=== PATIENT | female | born 1980 | race Caucasian/White ===

== ENCOUNTER 2020-12-15 03:04 | Emergency (ER) | payer SELFPAY ==
[2020-12-15 03:04] VITALS: BP 149/97; PULSE 75; RESP 16; TEMP 35.8; O2SAT 99; BMI 30.3
--- NOTE | 2020-12-15 03:20 | ED.VIS.GEN ---
History of Present Illness Chief Complaint: Dental Informant: Patient Onset: Yesterday Context: Gradual Onset Current Severity: Moderate Maximum Severity: Moderate Narrative: Patient presents secondary to dental abscess. Patient states she had a cavity in her tooth. She bit down on something about a week and a half ago and her tooth broke. Yesterday she started developing some pain in her tooth and noted some slight swelling last night. Patient works third shift and states is her shift continued swelling seem to get worse. She presents here stating that she knows she has been on antibiotics that she can see her dentist. She denies difficulty swallowing. No fever or chills. Past Medical History - Allergies and Home Meds Allergies/Adverse Reactions: Allergies No Known Allergies Allergy (Verified 12/15/20 03:06) Past Medical History: None Surgical History: tonsillectomy Smoking Status: Current every day smoker Review of Systems General: Denies: Chills, Fever Eyes: Denies: Visual changes - bilaterally ENT: Reports: - - Left-sided dental pain. Denies: Bilateral ear pain Cardiovascular: Denies: Chest pain Respiratory: Denies: Dyspnea, Cough Gastrointestinal: Denies: Abdominal pain, Vomiting, Diarrhea Genitourinary: Denies: Dysuria Musculoskeletal: Denies: Swelling, Extremity Pain Neurological: Denies: Headache Hematologic: Denies: Easy bruising, Easy bleeding Allergy: Denies: Uticaria Physical Exam Vital Signs/Narrative: Vital Signs Temp Pulse Resp BP Pulse Ox 12/15/20 03:04 96.4 F L 75 16 149/97 H 99 Inital Vital Signs reviewed: Yes General: Well nourished, Well developed Head: Normocephalic Eyes: Perrl, EOMI ENT: Moist mucous membranes, TM's clear, - - Left facial edema along the mandible. No erythema or warmth. Intraoral examination reveals several cavities. The left mandibular first molar is broken with mild surrounding gum edema. Posterior pharynx exam is normal. No trismus. No evidence of Elidia's angina. Neck: Supple Cardiovascular: Regular rate, Regular rhythm Respiratory: No distress, CTA bilaterally Abdomen: Soft, Nontender Skin: Normal color Neurological: Alert, Oriented x3 Psychological: Normal affect Diagnostic/Tx/Re-eval - Medical Decision Making Patient be treated with a course of Pen-Vee K, first dose given here. She will follow-up with her dentist. She will continue Tylenol ibuprofen as needed for pain. ED Disposition - Plan for ED Patient: Disposition: Home or Assisted Living Diagnosis: Dental abscess Instructions: ED Dental Abscess Prescriptions: Penicillin V Potassium 500 mg PO 4X/DAY #40 tablet Transmission Status: Received by [employer] #30 Additional Instructions: Follow-up with your dentist as soon as possible.
[2020-12-15] MEDS: Penicillin Vk 250 MG Tablet 500 MG PO (03:38)
[2020-12-15 03:40] VITALS: BP 149/97; PULSE 75; RESP 16; O2SAT 97
== END 2020-12-15 03:41 | disposition home or self-care (01) ==
PROVIDERS: Emergency Provider Emergency Medicine; PCP Internal Medicine
DX: K04.7 Periapical abscess without sinus (principal); F17.210 Nicotine dependence, cigarettes, uncomplicated
CPT/HCPCS: 99283

== ENCOUNTER 2021-05-03 09:14 | Emergency (ER) | payer SELFPAY ==
[2021-05-03 09:14] VITALS: BP 154/98; PULSE 77; RESP 16; TEMP 36.5; O2SAT 100; BMI 28.6
--- NOTE | 2021-05-03 09:31 | EDS_ITS ---
HPI History of Present Illness Chief Complaint: Dental Detail of Chief Complaint: Lower dental pain with facial swelling Informant: patient Narrative Narrative: Patient presents to the emergency department with intermittent left lower dental pain for several weeks due to a broken tooth. Yesterday patient started noticing left-sided facial swelling while at work. She denies any fevers or chills or sweats. She does not have a dentist. Prior similar symptoms: No PFSH PFSH Home Medications aspirin [Baby Aspirin] 81 mg PO DAILY 05/03/21 [History Last Taken Unknown] clindamycin HCl [Cleocin HCl] 300 mg PO Q6H #40 capsule 05/03/21 [Rx Last Taken Unknown] Allergy/AdvReac Type Severity Reaction Status Date / Time No Known Allergies Allergy Verified 05/03/21 09:16 Social History Smoking Status: Current every day smoker tobacco type: cigarettes ROS ROS ED Constitutional Constitutional ED: Reports systems reviewed and no addt'l complaints, except as documented; Denies body ache(s), change in weight or chills Eyes Eyes: Denies acute decrease in peripheral vision, change in vision, double vision or loss of vision ENT ENT ED: Reports none and other Details: Left lower dental pain and left-sided facial swelling ; Denies ear pain, lip swelling, loss taste/smell, neck pain, otalgia or sore throat Cardiovascular Cardiovascular: Reports none; Denies abdominal pain, chest pain with activity, leg edema, lightheadedness, palpitations, rapid heart rate or syncope Respiratory/Chest Respiratory/Chest: Reports none; Denies change in mental status, dry cough, dyspnea, hemoptysis, shortness of breath at rest or shortness of breath with exertion Gastrointestinal Gastrointestinal: Reports none; Denies abdominal pain, change in stool character, diarrhea, hematemesis, hematochezia, melena, rectal bleeding or vomiting Genitourinary Genitourinary ED: Reports none; Denies abdominal discomfort, anuria, dysuria, genital pain or polyuria Musculoskeletal Musculoskeletal: Reports none; Denies arthralgias, back pain, difficulty walking, extremity pain, muscle weakness or myalgias Integumentary Reports none; Denies abscess or rash Neurologic Neurologic: Reports none; Denies abnormal gait, confusion, focal weakness, frequent falls, headache(s), loss of vision, numbness, paresthesias, radicular pain, vertigo or weakness Psychiatric Psychiatric: Reports systems reviewed and no addt'l complaints, except as documented and none; Denies behavioral changes, confusion, difficulty concentrating, hallucinations, suicidal ideation, tactile hallucinations or visual hallucinations Endocrine Endocrinology: Denies none, cold intolerance, excessive sweating, fatigue or heat intolerance Hematologic/Lymphatic Hematologic/Lymphatic: Reports none; Denies anemia, easy bleeding or easy bruising Allergic/Immunologic Allergic/Immunologic ED: Denies as per HPI, none, lip swelling, mouth swelling, throat swelling, tongue swelling or hives EXAM Physical Exam Const Vital Signs: 05/03/21 09:14 Temperature 97.7 F L Temperature Source Temporal Pulse Rate 77 Respiratory Rate 16 Blood Pressure 154/98 H Blood Pressure Mean 116 Pulse Ox 100 Oxygen Delivery Method Room Air Positive well nourished and well developed General Appearance ED: well developed and NAD HEENT Reports TM's clear and moist mucous membranes HEENT Narrative: Patient does have a broken and carried tooth #20 that is slightly tender to palpation. There is mild gingival swelling. Evaluation of the left side of the face does reveal what looks to be a abscess with surrounding cellulitis over the area of the left lower mandible. There is a fluctuant area measuring approximately 2 cm in diameter. normocephalic and atraumatic; Negative for trauma or tenderness Tympanic Membrane ED: Yes TM's clear Eyes PERRL and EOMs intact bilaterally General Eye ED: Negative for pale conjunctiva or scleral icterus Neck no lymphadenopathy, supple and no JVD General: Negative for tenderness Chest Wall inspection of chest normal and palpation of chest normal Chest: Negative for tenderness Resp normal respiratory effort and clear to auscultation bilaterally Effort and Inspection: Negative for respiratory distress or pain with movement Auscultation: Negative for rhonchi, wheezes or diminished lung sounds Cardio regular rate, regular rhythm, S1 normal heart sound, S2 normal heart sound and no murmurs Peripheral Pulses: pulses 2+ throughout GI normal to inspection, nondistended, normoactive bowel sounds, soft to palpation, non-tender, non-distended and no masses Back/Spine no CVA tenderness and no thoracic nor lumbar tenderness Extremity normal to inspection General Extremety ED: Negative for edema General Extremity: Negative for edema Neuro oriented x3, CN's II-XII intact bilaterally, no sensory deficits noted and gait normal Sensorium / Orientation: awake, alert, oriented to person, oriented to place and oriented to time Motor Exam: strength 5/5 throughout and strength abnormal Psych mental status grossly normal Skin no rashes or lesions noted and no wounds MDM MDM MDM Narrative Medical decision making narrative: Patient was offered a stab incision as I suspected likely a dermal abscess. Patient was in agreement. She did not want anesthetic. We decided to do a stab incision with a 18-gauge needle rather than make a larger incision given the aesthetics to the face. I cleansed the skin with alcohol swab and then with an 18-gauge needle made a stab incision and was able to express copious amounts of free-flowing purulent drainage that was foul smelling. After expressing as much of the purulent material a clean dressing was applied. Patient was started on clindamycin. Patient also interested in receiving the Covid vaccine [employer]. She understands its not fully FDA approved. She has not had Covid recently and has no Covid symptoms. Patient has not had any complications with vaccines in the past. Discharge Plan Triage Chief Complaint: Dental ED Provider: Melecio Gordon Dx/Rx/DC Orders Clinical Impression: Abscess, Pain, dental Instructions: Abscess Drainage, ED Dental Pain Prescriptions: New clindamycin HCl [Cleocin HCl] 300 MG capsule 300 mg PO Q6H Qty: 40 RF: 0 No Action aspirin [Baby Aspirin] 81 mg Tablet,Chewable 81 mg PO DAILY RF: 0 Primary Care Provider: Eula Gonzalez Referrals: Eula Gonzalez MD [Primary Care Provider] - Activity Restrictions/Additional Instructions: See a dentist at the earliest possible time. Disposition Disposition: Home, Self Care
[2021-05-03] MEDS: COVID-19 VAC,AD26(JANSSEN)/PF 0.5 ML SYRINGE IM (10:02)
[2021-05-03] MEDS: Clindamycin HCl 150 MG Capsule 300 MG PO (10:06)
== END 2021-05-03 10:33 | disposition home or self-care (01) ==
PROVIDERS: Emergency Provider Emergency Medicine; PCP Internal Medicine
DX: K04.7 Periapical abscess without sinus (principal); S02.5XXA Fracture of tooth (traumatic), initial encounter for closed fracture; X58.XXXA Exposure to other specified factors, initial encounter; Y93.9 Activity, unspecified; Y92.9 Unspecified place or not applicable; F17.210 Nicotine dependence, cigarettes, uncomplicated
CPT/HCPCS: 41800; 91303; 99283

== ENCOUNTER 2021-06-24 10:40 | Emergency (ER) | payer SELFPAY ==
[2021-06-24 10:41] VITALS: BP 147/85; PULSE 65; RESP 17; TEMP 36.5; O2SAT 100; BMI 29.9
[2021-06-24 10:55] VITALS: BP 147/85; PULSE 56; RESP 16; TEMP 36.6; O2SAT 99
--- NOTE | 2021-06-24 11:13 | EDS_ITS ---
HPI History of Present Illness Chief Complaint: Abscess Informant: patient Narrative Narrative: Patient is complaining of a swollen red sore area on the left side of her jaw. She does not have dental pain. She has no trauma here. It started with a small red spot about 4 days ago and is slowly grown. She has no systemic symptoms such as nausea vomiting fevers or chills. No history of immunosuppression. She has squeezed the area but no drainage. PFSH PFSH Home Medications aspirin [Baby Aspirin] 81 mg PO DAILY 05/03/21 [History Last Taken Unknown] cephalexin 500 mg PO Q6 #40 cap 06/24/21 [Rx Last Taken Unknown] sulfamethoxazole-trimethoprim [Bactrim DS] 1 tab PO Q12H #20 tab 06/24/21 [Rx Last Taken Unknown] Allergy/AdvReac Type Severity Reaction Status Date / Time No Known Allergies Allergy Verified 06/24/21 10:40 Surgical History H/O: Social History Smoking Status: Current every day smoker tobacco type: cigarettes ROS ROS ED Constitutional Constitutional ED: Denies chills or fever(s) ENT ENT ED: Reports other Details: See history of present illness ; Denies rhinorrhea or sore throat Cardiovascular Cardiovascular: Denies chest pain or palpitations Gastrointestinal Gastrointestinal: Denies nausea or vomiting Musculoskeletal Musculoskeletal: Denies arthralgias or myalgias Integumentary Reports abscess and other Details: See history of present illness. Endocrine Endocrinology: Denies polydipsia or polyuria Allergic/Immunologic Allergic/Immunologic ED: Denies mouth swelling EXAM Physical Exam Const Vital Signs: 06/24/21 10:41 06/24/21 10:55 Temperature 97.7 F L 97.8 F Temperature Source Temporal Oral Pulse Rate 65 56 L Respiratory Rate 17 16 Blood Pressure 147/85 H 147/85 H Blood Pressure Mean 105 105 Pulse Ox 100 99 Oxygen Delivery Method Room Air Room Air Positive well nourished and well developed General Appearance ED: well developed and NAD HEENT HEENT Narrative: Has an area of erythema about 2 and half centimeters around on the left lateral aspect of the cheek overlying the mandible. This is well- circumscribed. There is about a 1 and half centimeter area that swollen in the middle. This is slightly fluctuant. There is some crusting and dry skin over it but no actual drainage. It looks close to draining though. No dental tenderness or swelling inside the mouth. Negative for trauma Eyes General Eye ED: Negative for pale conjunctiva or scleral icterus Neck no lymphadenopathy Resp normal respiratory effort Psych mental status grossly normal Skin Skin Narrative: Abscess left lateral jaw as above. MDM MDM MDM Narrative Medical decision making narrative: Discussed risks options. Procedure: Drainage of abscess: The area around the wound was cleaned and prepped. It was anesthetized with 1 cc of 1% lidocaine with epinephrine locally. She got good anesthesia. #11 blade made incision over the center soft area that had a little crusting already. We got immediate relief of purulent material. We applied some gentle pressure to drain this. I then broke up any potential loculations. None were found. We did irrigate this. I explained care to the patient. The pocket is not really big enough to put a wick in. But patient will keep moist compress on the area. She can gently milk the area to keep it clean. We will get her on antibiotics. We discussed signs and symptoms that would prompt return to the emergency department. We also discussed expected course with improvement really starting primarily in a few days. Discharge Plan Triage Chief Complaint: Abscess ED Provider: Jimmy Bray Dx/Rx/DC Orders Clinical Impression: Abscess of face, Encounter for incision and drainage procedure Instructions: ED Abscess Incision And Drainage Prescriptions: New cephalexin [cephalexin] 500 MG capsule 500 mg PO Q6 Qty: 40 RF: 0 sulfamethoxazole-trimethoprim [Bactrim DS] 800-160 mg tablet 1 tab PO Q12H Qty: 20 RF: 0 No Action aspirin [Baby Aspirin] 81 mg Tablet,Chewable 81 mg PO DAILY RF: 0 Primary Care Provider: Eula Gonzalez Referrals: Eula Gonzalez MD [Primary Care Provider] - 3-5 Days if not improving Disposition Disposition: Home, Self Care
[2021-06-24] MEDS: Lidocaine 1% /Epi 1:100 (20ml) 20 ML Vial INFILT (11:27)
[2021-06-24 12:26] VITALS: BP 129/84; PULSE 76; RESP 15; O2SAT 99
== END 2021-06-24 12:27 | disposition home or self-care (01) ==
PROVIDERS: Emergency Provider Emergency Medicine; PCP Internal Medicine
DX: L02.01 Cutaneous abscess of face (principal); F17.210 Nicotine dependence, cigarettes, uncomplicated
CPT/HCPCS: 10060; 99283

== ENCOUNTER 2021-09-25 10:55 | Emergency (ER) | payer SELFPAY ==
[2021-09-25 10:56] VITALS: BP 139/82; PULSE 65; RESP 18; TEMP 36.6; O2SAT 96; BMI 31.8
--- NOTE | 2021-09-25 12:25 | EDS_ITS ---
HPI History of Present Illness Chief Complaint: Dental Informant: patient Onset/Context/Timing Onset: Yesterday Context: Gradual Onset Timing: Continuous Current Severity: Mild Maximum Severity: Moderate Associated Symptoms Assocated Symptom - Dental: jaw swelling and face swelling; Negative for fever, cold sensitivity or hot sensitivity Narrative Narrative: 40-year-old female no sniffing past medical history. States yesterday started having lower jaw pain and swelling. No trauma. She has had infections before. Denies any fever or chills. No trouble swallowing or breathing. Prior similar symptoms: Yes Recent Illness/Hospitalization: No PFSH PFSH Medical History no medical history no medical history Home Medications aspirin [Baby Aspirin] 81 mg PO DAILY 05/03/21 [History Last Taken Unknown] penicillin V potassium 500 mg PO 4X/DAY #40 tab 09/25/21 [Rx Last Taken Unknown] Allergy/AdvReac Type Severity Reaction Status Date / Time No Known Allergies Allergy Verified 09/25/21 10:55 Surgical History H/O: Social History Smoking Status: Current every day smoker tobacco type: cigarettes ROS ROS ED ROS Narrative Denies. Review of Systems ROS Unobtainable: Denies due to encephalopathy Constitutional Constitutional ED: Denies chills, fever(s) or subjective Eyes Eyes: Denies change in vision ENT ENT ED: Denies ear pain Cardiovascular Cardiovascular: Denies chest pain or palpitations Respiratory/Chest Respiratory/Chest: Denies cough or dyspnea Gastrointestinal Gastrointestinal: Denies abdominal pain Genitourinary Genitourinary ED: Denies dysuria or hematuria Musculoskeletal Musculoskeletal: Denies myalgias Integumentary Denies abscess or rash Neurologic Neurologic: Denies headache(s) or weakness Psychiatric Psychiatric: Denies anxiety or depression Endocrine Endocrinology: Denies polydipsia or polyuria Hematologic/Lymphatic Hematologic/Lymphatic: Denies easy bleeding or easy bruising Allergic/Immunologic Allergic/Immunologic ED: Denies mouth swelling or urticaria EXAM Physical Exam Narrative Exam Narrative: 40-year-old female no acute distress. Vital signs stable afebrile. H EENT exam dental decay throughout her mouth. Molars are eroded to the gums. On the left lower jaw gum is swollen there is no abscess. She has moderate right facial swelling. Underneath her tongue is not tender or swollen. There is no Elidia's angina. There is no cervical lymphadenopathy. She has no trouble swallowing or breathing. There is no drooling or stridor. Lungs are clear. Heart regular rhythm. Abdomen soft. Otherwise exam unremarkable. On her mouth exam there is nothing that can be drained at this time. Const Vital Signs: 09/25/21 10:56 Temperature 97.9 F Temperature Source Temporal Pulse Rate 65 Respiratory Rate 18 Blood Pressure 139/82 H Blood Pressure Mean 101 Pulse Ox 96 Oxygen Delivery Method Room Air Positive well nourished, well developed and obese; Negative for cachectic, contractures or unkempt General Appearance ED: well developed and NAD; Negative for unkempt, cachectic, contractures, pallor or other Nutritional Appearance: obese; Negative for cachectic HEENT HEENT Narrative: Multiple decaying and eroded teeth. Left lower jaw gingival swelling but no palpable abscess. Floor the mouth unremarkable and nontender. Left facial swelling. tenderness; Negative for trauma Teeth and Gingiva: abnormal tooth and associated gingiva Eyes PERRL and EOMs intact bilaterally General Eye ED: Negative for pale conjunctiva or scleral icterus Neck no lymphadenopathy, supple and no JVD General: normal visual inspection; Negative for anterior neck swelling, tenderness or submandibular swelling Lymph Lymphatic: no lymphadenopathy noted; Negative for lymphadenopathy Chest Wall inspection of chest normal and palpation of chest normal Resp normal respiratory effort, no retractions and clear to auscultation bilaterally Cardio regular rate, regular rhythm, S1 normal heart sound, S2 normal heart sound and no murmurs GI normal to inspection, nondistended, normoactive bowel sounds, non-tender, non- distended and no masses Palpation: soft Back/Spine no CVA tenderness General Back: Negative for CVA tenderness Thoracic Spine / Upper Back: Negative for thoracic spinal tenderness or paraspinal muscle tenderness Extremity normal to inspection and no joint enlargement General Extremety ED: Negative for edema General Extremity: Negative for edema Neuro oriented x3, moves all extremities, no focal motor deficits and no sensory deficits noted Sensorium / Orientation: alert, oriented to person, oriented to place and oriented to time; Negative for orientation impaired Motor Exam: strength 5/5 throughout; Negative for general weakness or strength abnormal Psych mental status grossly normal Appearance: Negative for unkempt Attitude: No agitated Mood & Affect: Negative for depressed, anxious or tearful Skin no rashes or lesions noted and no wounds General Skin Exam: Negative for pallor MDM MDM MDM Narrative Medical decision making narrative: Middle-aged female with dental infection with facial swelling. Does not need to be admitted for IV antibiotics at this time. We will start her on Pen-Vee K 500 4 times daily give her first dose here. Treated for 10 days. She is working on following up with a dentist she is waiting for her insurance is to kick in. She knows to return if this gets worse. Discharge Plan Triage Chief Complaint: Dental ED Provider: Ryan Frey Dx/Rx/DC Orders Clinical Impression: Abscess Instructions: Dental Abscess, ED Dental Pain Prescriptions: New penicillin V potassium 500 mg tablet 500 mg PO 4X/DAY Qty: 40 RF: 0 No Action aspirin [Baby Aspirin] 81 mg Tablet,Chewable 81 mg PO DAILY RF: 0 Primary Care Provider: Eula Gonzalez Referrals: Eula Gonzalez MD [Primary Care Provider] - 3-5 Days if not improving Activity Restrictions/Additional Instructions: Ice to your jaw. Warm salt water gargling. Motrin and Tylenol for pain and swelling. The antibiotic penicillin 4 times a day for 10 days. Call and follow-up with a dentist as soon as possible. Return to the emergency department the swelling gets worse you start having trouble swallowing or breathing. At this time you do not need to be admitted for IV antibiotics but if this gets worse that would be a possibility. Disposition Disposition: Home, Self Care
[2021-09-25] MEDS: Penicillin Vk 250 MG Tablet 500 MG PO (12:33)
== END 2021-09-25 12:57 | disposition home or self-care (01) ==
LOC: ED 12:45
PROVIDERS: Emergency Provider Emergency Medicine; PCP Internal Medicine; Visit Provider Emergency Medicine
DX: K04.7 Periapical abscess without sinus (principal); F17.210 Nicotine dependence, cigarettes, uncomplicated
CPT/HCPCS: 99283

== ENCOUNTER 2021-09-26 17:58 | Emergency (ER) | payer SELFPAY ==
[2021-09-26 17:58] VITALS: BP 132/97; PULSE 89; RESP 16; TEMP 36.6; O2SAT 98; BMI 31.6
[2021-09-26 18:00] VITALS: BP 132/97; PULSE 89; RESP 16; TEMP 36.6; O2SAT 98
[2021-09-26] MEDS: HYDROcodone Bitartrate/Apap 5/325 Tablet PO (20:38)
[2021-09-26] MEDS: Tetracaine/Benzocaine/Butamben 1 APPLIC TOPICAL (20:38)
--- NOTE | 2021-09-26 21:27 | ED.VIS.DENTA ---
HPI History of Present Illness Chief Complaint: Dental Informant: patient Onset/Context/Timing Onset: Days (several) Context: Gradual Onset Quality: swelling, throbbing Location: left lower jaw/face Current Severity: Severe Maximum Severity: Severe Worsened by: moving jaw, palpation Associated Symptoms Assocated Symptom - Dental: jaw swelling Narrative Narrative: Patient seen here yesterday for dental abscess and placed on penicillin, she states the swelling has worsened and so has the pain. No fevers or chills. No discharge. PFSH PFSH Medical History no medical history no medical history Home Medications aspirin 81 mg PO DAILY 05/03/21 [History Last Taken Unknown] penicillin V potassium 500 mg PO 4X/DAY #40 tab 09/25/21 [Rx Last Taken Unknown] Allergy/AdvReac Type Severity Reaction Status Date / Time No Known Allergies Allergy Verified 09/26/21 18:00 Surgical History H/O: Social History Smoking Status: Current every day smoker tobacco type: cigarettes ROS ROS ED Constitutional Constitutional ED: Denies chills or fever(s) Eyes Eyes: Denies change in vision or double vision ENT ENT ED: Reports dental pain; Denies nasal discharge, sinus pain or throat swelling Cardiovascular Cardiovascular: Denies chest pain or palpitations Respiratory/Chest Respiratory/Chest: Denies cough or dyspnea Integumentary Denies abscess or rash Neurologic Neurologic: Denies headache(s), paresthesias or weakness EXAM Physical Exam Const Vital Signs: 09/26/21 17:58 09/26/21 18:00 Temperature 98 F 98 F Temperature Source Temporal Temporal Pulse Rate 89 89 Respiratory Rate 16 16 Blood Pressure 132/97 H 132/97 H Blood Pressure Mean 108 108 Pulse Ox 98 98 Oxygen Delivery Method Room Air Room Air Positive well nourished and well developed General Appearance ED: well developed and NAD HEENT HEENT Narrative: Large dental abscess's with significant left lower facial swelling, tenderness seems to be the most significant inside the mouth near the left mandibular first molar which is tender and decayed down to the gumline. No spontaneous discharge or bleeding. Mild trismus due to the swelling. Face and Sinus: sinuses nontender Throat: posterior oropharynx normal Eyes PERRL and EOMs intact bilaterally Neck no lymphadenopathy and supple Resp normal respiratory effort Neuro oriented x3 and CN's II-XII intact bilaterally Sensorium / Orientation: alert Gait (Neuro): normal gait Psych mental status grossly normal and thought process normal Skin no rashes or lesions noted and no wounds MDM MDM MDM Narrative Medical decision making narrative: See the procedure note. After draining the dental abscess is much as I was able, as the patient was with drawling away from the needle and pain is did limit the exam somewhat, I had the patient massage the abscess with some ice water and the other hand in order to try to continue draining it is much as possible. Recommend continuing doing this as much as she is able in the penicillin following up with a dentist. Procedures Other Procedures Procedure(s): Dental abscess aspiration: After verbal consent from the patient, topical Cetacaine spray inside the mouth, followed by aspirating 8 cc of pus with an 18-gauge needle. Tolerated well, no complications. Discharge Plan Triage Chief Complaint: Dental ED Provider: Luis Torres Dx/Rx/DC Orders Clinical Impression: Abscess, dental Instructions: Dental Abscess Prescriptions: Continued aspirin 81 mg Tablet,Chewable 81 mg PO DAILY RF: 0 penicillin V potassium 500 mg tablet 500 mg PO 4X/DAY Qty: 40 RF: 0 Primary Care Provider: Eula Gonzalez Referrals: Eula Gonzalez MD [Primary Care Provider] - Dentist,Your [STAFF PHYSICIAN] - As soon as possible Disposition Disposition: Home, Self Care
[2021-09-26 21:50] VITALS: BP 146/90; PULSE 70
== END 2021-09-26 21:58 | disposition home or self-care (01) ==
PROVIDERS: Emergency Provider Emergency Medicine; PCP Internal Medicine; Visit Provider Emergency Medicine
DX: K04.7 Periapical abscess without sinus (principal); F17.210 Nicotine dependence, cigarettes, uncomplicated
CPT/HCPCS: 41800; 99283

== ENCOUNTER 2021-09-28 14:00 | Emergency (ER) | payer SELFPAY ==
[2021-09-28 14:01] VITALS: BP 152/112; PULSE 82; RESP 16; TEMP 36.4; O2SAT 99; BMI 31.6
--- NOTE | 2021-09-28 14:58 | EDS_ITS ---
HPI History of Present Illness Chief Complaint: Abscess Informant: patient Onset/Context/Timing Onset: Days Context: Gradual Onset Current Severity: Moderate Maximum Severity: Moderate Narrative Narrative: Patient present secondary to left-sided facial abscess. Patient was seen in the ER on both Friday and Friday this week with a dental abscess. She states the entire jawline was swollen. On Friday she had 8 cc of pus drained from the area just lateral to the left mandibular molar. She states the swelling in her mouth is significantly better. The swelling along the jawline is improved but more localized and seems to be trying to drain on its own. She spoke with her dentist on the phone today who recommended she come in to have it opened and drained. She is scheduled to see him in the office on Friday. PFSH PFSH Medical History no medical history no medical history Home Medications aspirin 81 mg PO DAILY 05/03/21 [History Last Taken Unknown] penicillin V potassium 500 mg PO 4X/DAY #40 tab 09/25/21 [Rx Last Taken Unknown] Allergy/AdvReac Type Severity Reaction Status Date / Time No Known Allergies Allergy Verified 09/28/21 14:03 Surgical History H/O: Social History Smoking Status: Current every day smoker tobacco type: cigarettes ROS ROS ED Constitutional Constitutional ED: Denies chills or fever(s) Eyes Eyes: Denies change in vision ENT ENT ED: Denies sore throat Cardiovascular Cardiovascular: Denies chest pain Respiratory/Chest Respiratory/Chest: Denies cough or dyspnea Gastrointestinal Gastrointestinal: Denies abdominal pain, diarrhea, nausea or vomiting Musculoskeletal Musculoskeletal: Denies back pain Integumentary Reports abscess; Denies rash Neurologic Neurologic: Denies headache(s) Allergic/Immunologic Allergic/Immunologic ED: Denies urticaria EXAM Physical Exam Const Vital Signs: 09/28/21 14:01 09/28/21 15:09 Temperature 97.6 F L Temperature Source Temporal Pulse Rate 82 Respiratory Rate 16 Blood Pressure 152/112 H 120/79 Blood Pressure Mean 125 92 Pulse Ox 99 Oxygen Delivery Method Room Air Positive well nourished and well developed General Appearance ED: well developed HEENT HEENT Narrative: Left-sided facial abscess measuring 6 x 4 cm located on the left mandible. Intraoral examination with mild edema along the buccal surface. No trismus. No submandibular fullness. No tongue elevation. Eyes PERRL and EOMs intact bilaterally Neck supple Chest Wall inspection of chest normal and palpation of chest normal Resp normal respiratory effort and clear to auscultation bilaterally Cardio regular rate and regular rhythm GI non-tender Palpation: soft Extremity normal to inspection Neuro oriented x3 Sensorium / Orientation: alert Psych mental status grossly normal [facility] Treatment and Re-Evaluation Comments:: Let was applied to the wound topically. Approximately half hour later went back to the room. The abscess is started to spontaneously drain. 2 cc of 1% lidocaine was infused. I was able to place the tip of a cotton tip swab into the opening and expanded slightly. Significant amount of pus drained from the wound. Wound is irrigated and cleansed. Patient will continue her antibiotics and ibuprofen. She will follow-up with Dr. Sultana on Friday as scheduled. Discharge Plan Triage Chief Complaint: Abscess ED Provider: Anabelle Cuellar Dx/Rx/DC Orders Clinical Impression: Abscess of face Instructions: ED Abscess Incision And Drainage Prescriptions: No Action aspirin 81 mg Tablet,Chewable 81 mg PO DAILY RF: 0 penicillin V potassium 500 mg tablet 500 mg PO 4X/DAY Qty: 40 RF: 0 Primary Care Provider: Eula Gonzalez Referrals: Eula Gonzalez MD [Primary Care Provider] - Dominic Sultana DDS [STAFF PHYSICIAN] - Keep Wilfredo appointment Disposition Disposition: Home, Self Care
[2021-09-28] MEDS: Lidocaine 1% (20 ml mdv) 20 ML Vial INFILT (15:08)
[2021-09-28 15:09] VITALS: BP 120/79
[2021-09-28] MEDS: Lidocaine/Epi/Tetracaine 50 ML 1 APPLIC TOPICAL (15:09)
[2021-09-28 16:23] VITALS: PULSE 74; RESP 16; O2SAT 98
== END 2021-09-28 16:25 | disposition home or self-care (01) ==
PROVIDERS: Emergency Provider Emergency Medicine; PCP Internal Medicine; Visit Provider Emergency Medicine
DX: L02.01 Cutaneous abscess of face (principal); F17.210 Nicotine dependence, cigarettes, uncomplicated
CPT/HCPCS: 99283

== ENCOUNTER 2021-11-27 12:29 | Emergency (ER) | payer BC, SELFPAY ==
[2021-11-27 12:31] VITALS: BP 147/96; PULSE 72; RESP 16; TEMP 36.6; O2SAT 100; BMI 30.7
[2021-11-27] MEDS: Clindamycin HCl 150 MG Capsule 300 MG PO (13:33)
--- NOTE | 2021-11-27 13:39 | EDS_ITS ---
HPI History of Present Illness Chief Complaint: Dental Narrative Narrative: Patient presents with left lower jaw pain and swelling. She is had problems with her teeth, and noticed some swelling of her left lower jaw on the inside approximately 1 week ago. She states she has a bad tooth in that area. She was going to go to [facility] today, but overnight noticed a large amount of swelling with fluctuance on the outside of her left lower jaw. She denies any fevers or chills. No nausea or vomiting. No other symptoms. She denies any neck pain. However, she states that her left lower jaw and the skin over it feels tight from stretching. PFSH PFS Medical History Smoker Home Medications aspirin 81 mg PO DAILY 05/03/21 [History Last Taken Unknown] penicillin V potassium 500 mg PO 4X/DAY #40 tab 09/25/21 [Rx Last Taken Unknown] clindamycin HCl [Cleocin HCl] 300 mg PO Q6H #40 cap 11/27/21 [Rx Last Taken Unknown] ibuprofen 800 mg PO Q6H PRN #30 tab 11/27/21 [Rx Last Taken Unknown] Allergy/AdvReac Type Severity Reaction Status Date / Time No Known Allergies Allergy Verified 09/28/21 14:03 Surgical History H/O: Social History Smoking Status: Current every day smoker tobacco type: cigarettes ROS ROS ED ROS Narrative Constitutional: No fever, no chills. HEENT: No sore throat. No neck pain. No loss of vision. No rhinorrhea. Left lower jaw pain and swelling with mild redness to skin. Cardiovascular: No chest pain. No palpitations. No pedal edema. Respiratory: No cough, no shortness of breath. Abdominal: No abdominal pain. No nausea. No vomiting. Genitourinary: No dysuria. No hematuria. Musculoskeletal: No myalgias. No arthralgias. Neurologic: No headaches. No dizziness. No lightheadedness. Skin: No rash. No change in color. Psychiatric: No depression. No anxiety. EXAM Physical Exam Narrative Exam Narrative: Afebrile. Vital signs noted. Nontoxic-appearing. HEENT: Normocephalic. Atraumatic. PERRL, EOMI. Neck soft and supple. No point tenderness or step off. No woody edema under tongue. Carious tooth left lower jaw. Positive swelling left lower jaw with mild erythema and approximately 1.5 cm diameter area of fluctuance. Cardiovascular: Regular rate and rhythm. No murmurs, rubs, or gallops appreciated. Respiratory: No tachypnea. Lungs clear to auscultation bilaterally. Gastrointestinal: Abdomen soft, nontender, with normoactive bowel sounds. No rebound or guarding. Neurological: Awake. Alert. Nonfocal, nonlateralizing. Skin: No rash. Normal color. No pallor. Musculoskeletal: No pedal edema. Full range of motion extremities. Const Vital Signs: 11/27/21 12:31 Temperature 98 F Temperature Source Temporal Pulse Rate 72 Respiratory Rate 16 Blood Pressure 147/96 H Blood Pressure Mean 113 Pulse Ox 100 Oxygen Delivery Method Room Air MDM MDM MDM Narrative Medical decision making narrative: Pulse ox is 100% on room air. I discussed with the patient performing needle aspiration of the area. Lidocaine 1% will be used as a local anesthetic for external needle aspiration. She was given her first dose of clindamycin here in the emergency department. Procedure note: ChloraPrep was used to cleanse the area on her left lower jaw. Lidocaine 1% was infiltrated a small amount. Needle aspiration performed using an 18-gauge needle and 10 cc syringe. There was a return of at least 5 mL of purulent material that was yellow to dark brown in color until the patient could not tolerate the procedure any longer and pulled away. There was slight bleeding there afterwards. Direct pressure was applied. There is less swelling of her left lower jaw. Patient feels fairly improved. Patient tolerated procedure fairly. At this point in time, she will be discharged for a prescription for clindamycin 300 mg 4 times a day for the next 10 days and for ibuprofen 800 mg #30 to take as needed. She will follow up with her dentist. Smoking cessation discussed. Disposition is discharged home in stable condition. Discharge Plan Triage Chief Complaint: Dental ED Provider: Joseph Cotton Dx/Rx/DC Orders Clinical Impression: Dental abscess, Pain, dental Instructions: ED Dental Abscess Facial Cellulitis Prescriptions: New clindamycin HCl [Cleocin HCl] 300 mg capsule 300 mg PO Q6H Qty: 40 RF: 0 ibuprofen 800 mg tablet 800 mg PO Q6H PRN (Reason: pain) Qty: 30 RF: 0 No Action aspirin 81 mg Tablet,Chewable 81 mg PO DAILY RF: 0 penicillin V potassium 500 mg tablet 500 mg PO 4X/DAY Qty: 40 RF: 0 Primary Care Provider: Eula Gonzalez Referrals: Eula Gonzalez MD [Primary Care Provider] - Activity Restrictions/Additional Instructions: Follow-up with: Your dentist at [facility] as soon as possible Disposition Disposition: Home, Self Care
[2021-11-27] MEDS: Lidocaine 1% (20 ml mdv) 20 ML Vial 5 ML INFILT (14:16)
[2021-11-27 14:56] VITALS: PULSE 60; RESP 15; O2SAT 99
== END 2021-11-27 14:57 | disposition home or self-care (01) ==
PROVIDERS: Emergency Provider Emergency Medicine; PCP Internal Medicine; Visit Provider Emergency Medicine
DX: K04.7 Periapical abscess without sinus (principal); F17.210 Nicotine dependence, cigarettes, uncomplicated; K02.9 Dental caries, unspecified
CPT/HCPCS: 41800; 99283